=== PATIENT | female | born 1955 | race Hispanic/Latino ===

== ENCOUNTER 2024-04-27 21:18 | Emergency (ER) | payer MEDICARE ==
[~2024-04-27] VITALS: Ht 154.9 cm; Wt 76.2 kg
[2024-04-27 21:45] VITALS: PULSE 87; RESP 18; TEMP 98.1
[2024-04-27] MEDS ORDERED: PREDNISONE50 MG PO (21:55)
[2024-04-27] MEDS ORDERED: VALACYCLOVIR1000 MG PO (21:55)
[2024-04-27] MEDS ORDERED: Morphine 2mg Syringe 2 MG/ML SYR IV ONE (22:00)
[2024-04-27 22:45] VITALS: BP 129/68; PULSE 76; RESP 18; TEMP 98.6; O2SAT 98
== END 2024-04-27 22:34 | disposition home or self-care (01) ==
LOC: ER 21:48
DX: R21 Rash and other nonspecific skin eruption (principal); B02.29 Other postherpetic nervous system involvement; I10 Essential (primary) hypertension; E78.5 Hyperlipidemia, unspecified; Z94.0 Kidney transplant status
CPT/HCPCS: 99283